=== PATIENT | female | born 1955 | race American Indian/Alaskan Native ===

== ENCOUNTER 2016-11-22 16:02 | Emergency (ER) | payer OTHER ==
[2016-11-22 16:11] VITALS: BP 188/97
--- NOTE | 2016-11-22 17:24 | Emergency Department Report ---
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 She said that she was wearing gloves and there was only a very small amount of blood after she poked herself but now he can barely even notice where the injection was into the left palm. She has a history of hypertension. She has not yet contacted the Worker's Compensation. She denies any history of HIV or hepatitis. She asked her patient at that time if they would be willing to come to the hospital for a blood draw and they were not but they also told her they did not have any history of HIV or hepatitis themselves. ED Past Medical Hx - Past Medical History Hx Hypertension: Yes - Social History Smoking Status: Never Smoker Substance Use Type: None ED Review of Systems ROS: Stated complaint: NEEDLESTICK AT WORK Other details as noted in HPI Comment: All other systems reviewed and negative Constitutional: denies: chills, fever Eyes: denies: eye pain, eye discharge, vision change ENT: denies: ear pain, throat pain Respiratory: denies: cough, shortness of breath, wheezing Cardiovascular: denies: chest pain, palpitations Gastrointestinal: denies: abdominal pain, nausea, diarrhea Genitourinary: denies: urgency, dysuria, discharge Musculoskeletal: denies: back pain, joint swelling, arthralgia Skin: denies: rash, lesions Neurological: denies: headache, weakness, paresthesias Physical Exam - Physical Exam Vital Signs: Vital Signs 11/22/16 16:08 Temperature 98.6 F Pulse Rate 60 Respiratory 18 Rate Blood Pressure 188/97 O2 Sat by Pulse 100 Oximetry Physical Exam: GENERAL: The patient is well-developed well-nourished. HENT: Normocephalic. Atraumatic. Patient has moist mucous membranes. EYES: Extraocular motions are intact. NECK: Supple. Trachea is midline. CHEST/LUNGS: Clear to auscultation. There is no respiratory distress noted. HEART/CARDIOVASCULAR: Regular. There is no tachycardia. There is no gallop rub or murmur. ABDOMEN: Abdomen is soft, nontender. Patient has normal bowel sounds. SKIN: Skin is warm and dry. No visible puncture wound or injection site. NEURO: The patient is awake, alert, and oriented. The patient is cooperative. The patient has no focal neurologic deficits. The patient has normal speech. MUSCULOSKELETAL: There is no obvious deformity. 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 I spoke to the patient in great detail regarding the statistics for transmission of HIV and hepatitis C. We spoke about postexposure prophylaxis, the medications used, and the side effects that are possibilities. She was unable to get the source patient to come to the hospital for a blood draw. My patient, the pharmacist, says she has low suspicion that person had HIV or hepatitis and after a lengthy discussion she decided she did not want to do the postexposure prophylaxis. If we are not doing the prophylaxis and I do not believe there is any necessity for any baseline HIV test through the emergency department. She was given a referral for the health department, encouraged to follow up with the Worker's Compensation department of [facility], follow up with her primary care physician and of course she is welcome to come back if she changes her mind. I am aware of the patient's elevated blood pressure but she does not have any complaints of chest pain, headache or anything significant that would be related to hypertension and she does have medications to take at home. For this reason no intervention was done for her elevated blood pressure. Critical Care Time: No Critical care attestation.: If time is entered above; I have spent that time in minutes in the direct care of this critically ill patient, excluding procedure time. ED Disposition Clinical Impression: Hypertension Qualifiers: Hypertension type: essential hypertension Qualified Code(s): I10 - Essential ( primary) hypertension Needle stick injury of finger of left hand Qualifiers: Encounter type: initial encounter Qualified Code(s): S61.239A - Puncture wound without foreign body of unspecified finger without damage to nail, initial encounter Disposition: - TO HOME OR SELFCARE Is pt being admited?: No Condition: Stable Instructions: Needle Stick Injuries (ED), Hypertension (ED) Additional Instructions: These follow-up with your primary care doctor regarding your hypertension. Please follow-up with [facility] to find out where you need to follow-up. Return to the emergency Department with any acute distress. I have given you a referral for the [facility] Department in case you change your mind about postexposure prophylaxis and need baseline testing done. Referrals: PRIMARY CARE [Primary Care Provider] - [facility] Depart [Outside] - 3-5 Days Time of Disposition: 17:25
== END 2016-11-22 17:43 | disposition home or self-care (01) ==
LOC: ED 16:02
DX: S61.432A Puncture wound without foreign body of left hand, initial encounter (principal); I10 Essential (primary) hypertension; X58.XXXA Exposure to other specified factors, initial encounter; Y93.9 Activity, unspecified; Y92.9 Unspecified place or not applicable; Y99.9 Unspecified external cause status
CPT/HCPCS: 99281